=== PATIENT | female | born 1945 | race Caucasian/White ===

== ENCOUNTER 2017-02-23 17:03 | Inpatient (IN) | payer OTHER ==
[2017-02-23] MEDS ORDERED: oxyCODONE IR 5 MG TAB PO PRN (18:15)
[2017-02-23] MEDS ORDERED: ACETAMINOPHEN 325 MG TAB PO PRN (18:15)
[2017-02-23] MEDS ORDERED: NS 1,000 ML IV SCH (18:15)
[2017-02-23] MEDS ORDERED: ONDANSETRON DISINTEGRATING 4 MG TAB PO PRN (18:15)
[2017-02-23] MEDS ORDERED: ONDANSETRON 4 MG/2 ML VIAL IVP PRN (18:15)
[2017-02-23] MEDS ORDERED: POLYETHYLENE GLYCOL 3350 17 GM PKT PO PRN (18:19)
[2017-02-23] MEDS ORDERED: BISACODYL 10 MG SUPP PR PRN (18:19)
[2017-02-23] MEDS ORDERED: LACTULOSE 20 GM/30 ML UDCUP PO PRN (18:19)
[2017-02-23] MEDS ORDERED: MAGNESIUM HYDROXIDE 30 ML UDCUP PO PRN (18:19)
--- NOTE | 2017-02-23 18:22 | PDGENHP ---
History and Physical - Chief Complaint Acute arm pain - History of Present Illness Primary care provider: Dr. Reyes HPI: 71-year-old female presenting with acute arm pain located over the elbow with associated tenderness, fever and chills. Onset of symptoms 2 days prior and duration has been progressively worsening thereafter. The patient reports that the onset was sudden but coincided with a mild skin tear she experienced over the right elbow. Prior to the skin tear, the affected area has been completely unremarkable. The patient does have chronic joint pain secondary to which she believes is osteoarthritis. She has had joint pain in her elbow in the past but was relatively stable prior to the onset of the symptoms. The patient did see her primary care provider 24 hours prior to this presentation and the margins were demarcated and blood cultures were drawn prior to administering 1 g of IV ceftriaxone, Keflex 500 mg 3 times daily. When she re- presented to the PCP office on the day of this admission, the erythema had been extending beyond the demarcated borders and the patient continued to experience subjective fevers. History Information - Allergies/Home Medication List Allergies/Adverse Reactions: hydromorphone HCl [From Dilaudid] Allergy (Severe, Verified 01/28/15 11:09) DELERIUM meperidine HCl [From Demerol] Allergy (Intermediate, Verified 01/28/15 11:09) Vomiting topiramate [From Topamax] Allergy (Intermediate, Verified 01/28/15 11:09) Vomiting Sulfa (Sulfonamide Antibiotics) Allergy (Unknown, Verified 02/11/15 15:23) NAUSEA SHINGLES VACCINE Allergy (Intermediate, Uncoded 01/28/15 11:09) INJ ARM NERVE PAIN Home Medications: Cholecalciferol (Vitamin D3) [Vitamin D3] 2,000 unit PO DAILY 01/22/15 [Last Taken 01/28/15] Cholecalciferol (Vitamin D3) [Vitamin D3] 2,000 unit PO HS PRN 01/22/15 [Last Taken 01/28/15] Fluticasone Nasal [Flonase Nasal Brewster] 2 sprays EACHNARE DAILY PRN 01/22/15 [ Last Taken 02/11/15 07:30] HYDROcodone/APAP 10/325 [Grant 10/325 (*)] 0.5 tab PO Q4 PRN 01/22/15 [Last Taken 02/11/15 04:00] Herbals/Supplements -Info Only 1 ea PO DAILY 01/22/15 [Last Taken 01/28/15] Lact Cmb2/S.thermophl/Bif Cmb1 [Vsl#3 Cap (*)] 1 each PO DAILY 01/22/15 [Last Taken 01/28/15] Levothyroxine [Synthroid 88 mcg (*)] 88 mcg PO DAILY06 01/22/15 [Last Taken 07:00] Liothyronine Sodium [Cytomel 5 mcg (*)] 5 mcg PO DAILY06 01/22/15 [Last Taken 07:00] Metaxalone [Skelaxin 800 mg (*)] 400 mg PO HS PRN 01/22/15 [Last Taken 02/10/15 22:00] Multivitamin with Minerals [One-A-Day Maximum Formula] 2 each PO BID 01/22/15 [ Last Taken 01/28/15] Goodman-3 Fatty Acids [Fish Oil 1000 mg (*)] 1,000 mg PO BID 01/22/15 [Last Taken 01/28/15] Pregabalin [Lyrica 50mg (*)] 100 mg PO HS 01/22/15 [Last Taken 02/10/15 22:00] SUMAtriptan [Imitrex 50 MG (*)] 50 mg PO Q2H PRN 01/22/15 [Last Taken 01/14/15] Verapamil ER [Calan SR/ER 120MG (*)] 120 mg PO DAILY 01/22/15 [Last Taken 02/10 09:00] celeCOXIB [Celebrex (*)] 200 mg PO BID 01/22/15 [Last Taken 02/10/15 21:45] traZODone [traZODONE 50MG (*)] 100 mg PO HS 01/22/15 [Last Taken 02/10/15 23:00] I have personally reviewed and updated: family history, medical history, social history, surgical history Past Medical History: Fibromyalgia. Severe osteoarthritis - Surgical History Additional surgical history: Bilateral total knee replacement, neck surgery - Family History Additional family history: Mother with severe arthritis, suspected to be non rheumatoid, she believes that her family members and herself have polio - Social History Smoking Status: Never smoked Alcohol Use: Occasionally Drug Use: None (Recently return from a trip to [place], no interaction with stagnant bodies of water) Review of Systems ROS: 10pt was reviewed & negative except for what was stated in HPI & below Muscolosketal: Reports: other (Elbow pain) Physical Exam Constitutional: no apparent distress, not in pain, cachectic, No uncomfortable Eyes: PERRL, anicteric sclera, EOMI Ears, Nose, Mouth, Throat: moist mucous membranes, hearing normal, ears appear normal, no oral mucosal ulcers Cardiovascular: regular rate and rhythym, no murmur, rub, or gallop, No edema Respiratory: no respiratory distress, no rales or rhonchi, clear to auscultation Gastrointestinal: normoactive bowel sounds, soft, non-tender abdomen, no palpable masses Skin: other (Blanching erythema right distal upper extremity with small healing skin abrasion along the right lateral arm near the elbow) Musculoskeletal: other (Full range of motion right wrist without any pain, impaired range of motion of right elbow beyond 30 degrees and 100 and 60 degrees resulting in pain, palpable tender olecranon bursa) Neurologic: AAOx3, sensation intact bilaterally Psychiatric: interacting appropriately, not anxious, not encephalopathic, thought process linear Assessment & Plan Assessment: 71-year-old female presenting with acute cellulitis and possible olecranon bursitis Plan: 1. Cellulitis. Acute, new problem this provider, further workup indicated. Around the elbow with possible underlying olecranon bursitis, leukocytosis -continue monitor blood cultures, sent on 02/22 -repeat CBC with white blood cell count in a.m. -discussed with Dr. Reyes, she has reported to me that the patient received 1 dose of IV ceftriaxone and then subsequent oral Keflex 500 mg three times daily beginning on 02/22, patient has had no clinical response and has this failed outpatient oral antibiotics, requiring initiation of IV antibiotics in the hospital -will administer IV vancomycin, gauge response -get ultrasound of right upper extremity veins to rule out DVT, ultrasound the bursa to gauge size and whether it is actively inflamed -provide IV and oral breakthrough pain medication, bowel regimen -get Infectious Disease consultation in a.m., consider bursa aspiration if area does not appear to be improving, will hold on aspirating at this time so as not to introduce additional infection into the bursa -there is not appear to be joint involvement in the right elbow, no orthopedics consultation indicated at this time 2. Fibromyalgia and severe osteoarthritis. Chronic, continue home medications -reviewed outside records including MRIs from 2011 demonstrating right humerus a vascular process, suspect this is not related process 3. Chronic pain with continuous opiate dependency. Continue patient's home pain medication, increased dose range given acute event Diet. Regular Prophylaxis. High risk patient, Lovenox 40 Code. Full Disposition. Anticipated discharge is 02/24/2017, pending clinical improvement of condition outlined above.
[2017-02-23] MEDS ORDERED: Rizatriptan Benzoate [Rizatriptan] 10 MG PO PRN (19:45)
[2017-02-23] MEDS ORDERED: METAXALONE 800 MG TAB PO PRN (19:45)
[2017-02-23] MEDS ORDERED: FLUTICASONE NASAL 120 SPRAYS/16 GM MDI EACHNARE PRN (19:45)
[2017-02-23] MEDS: PREGABALIN 100 MG CAP PO SCH (20:04)
[2017-02-23] MEDS: MULTIVITAMINS 1 EACH TAB PO SCH (20:04)
[2017-02-23] MEDS: SENNOSIDES/DOCUSATE SODIUM TAB PO SCH (20:04)
[2017-02-23] MEDS: traZODone 100 MG TAB PO SCH (20:05)
[2017-02-23] MEDS: HYDROCODONE/APAP 10/325 TAB PO PRN (20:05)
[2017-02-23] MEDS: VANCOMYCIN 750 MG in D5W 150 ML IV SCH (20:28)
[2017-02-24] MEDS: HYDROCODONE/APAP 10/325 TAB PO PRN ×4 (02:33→20:35)
[2017-02-24 04:59] LABS: % IMMATURE GRANULYOCYTES 0.9 % (0.0-1.1); ABSOLUTE IMMATURE GRANULOCYTES 0.08 10^3/uL (0.00-0.10); ADD DIFF? NO; ADD MORPH? NO; ADD SCAN? NO; ATYPICAL LYMPHOCYTE FLAG 0 (0-99); FRAGMENT RBC FLAG 0 (0-99); HEMATOCRIT 30.4 % (38.0-47.0); HEMOGLOBIN 10.3 g/dL (12.6-16.3); LEFT SHIFT FLG 70 (0-99); LIPEMIA HEMOLYSIS FLAG 90 (0-99); MEAN CELL HEMOGLOBIN 31.1 pg (27.9-34.1); MEAN CELL HEMOGLOBIN CONCENTR. 33.9 g/dL (32.4-36.7); MEAN CELL VOLUME 91.8 fL (81.5-99.8); MEAN PLATELET VOLUME 10.5 fL (8.7-11.7); PLATELET CLUMPS FLAG 0 (0-99); PLATELET COUNT 118 10^3/uL (150-400); RED BLOOD CELL COUNT 3.31 10^6/uL (4.18-5.33); RED CELL DISTRIBUTION WIDTH 14.4 % (11.5-15.2)
[2017-02-24] MEDS: LEVOTHYROXINE 88 MCG TAB PO SCH (05:17)
[2017-02-24 05:25] LABS: ANION GAP 4 mEq/L (8-16); CALCIUM 8.9 mg/dL (8.5-10.4); CARBON DIOXIDE 21 mEq/l (22-31); CHLORIDE 112 mEq/L (97-110); CREATININE 0.6 mg/dL (0.6-1.0); GLOMERULAR FILTRATION RATE > 60; GLUCOSE 91 mg/dL (70-100); POTASSIUM 3.8 mEq/L (3.5-5.2); SODIUM 137 mEq/L (134-144)
[2017-02-24] MEDS: VANCOMYCIN 750 MG in D5W 150 ML IV SCH ×2 (07:41→20:40)
[2017-02-24] MEDS: ENOXAPARIN 40 MG/0.4 ML SYR SC SCH (08:25)
[2017-02-24] MEDS: CHOLECALCIFEROL VIT D3 2,000 UNITS TAB/CAP PO SCH (08:25)
[2017-02-24] MEDS: SENNOSIDES/DOCUSATE SODIUM TAB PO SCH ×2 (08:25→20:36)
[2017-02-24] MEDS: OMEGA-3 FATTY ACIDS 1,000 MG CAP PO SCH (08:25)
[2017-02-24] MEDS: MULTIVITAMINS 1 EACH TAB PO SCH ×2 (08:25→20:38)
[2017-02-24] MEDS: VERAPAMIL ER 120 MG TAB PO SCH (08:29)
[2017-02-24] MEDS ORDERED: Herbals/Supplements -Info Only PO SCH (09:00)
--- NOTE | 2017-02-24 11:34 | GCON ---
[f rep st] CONSULTATION INFECTIOUS DISEASE CONSULTATION DATE OF CONSULTATION: 02/24/2017 REFERRING PHYSICIAN: Solitario Graham MD REASON FOR CONSULTATION: Right olecranon septic bursitis. REASON FOR CONSULTATION: Right upper extremity cellulitis with possible septic olecranon bursitis. HISTORY OF PRESENT ILLNESS: Patient is a 71-year-old female who I am asked to see in consultation for right upper extremity cellulitis and possible septic bursitis. The patient describes developing onset of swelling, pain, erythema, fever and shaking chills approximately 2 days ago. She was seen by her primary care physician for above complaint and given IM ceftriaxone and started on cephalexin with the area being demarcated. The following day, she was seen in followup and noted to have progression of her erythema, and thus was referred to the hospital for further care. The patient does note that prior to onset of symptoms she had a small superficial skin tear when she hit her elbow on a knee wall while staying in a hotel in [place]. She describes having a prior history of olecranon bursitis treated in the past by Dr. Galloway. At her initial visit, blood cultures were obtained, and these are no growth to date. Yesterday the patient had ultrasound performed of the elbow to assess for bursal fluid which showed evidence of a 3.7 x 2 x 3.7 cm bursal fluid collection. Venous ultrasound showed no evidence of DVT. The patient has been started empirically on vancomycin. Given the above findings, I am now asked to assist in her ongoing management. PAST MEDICAL HISTORY: Chronic fatigue/fibromyalgia, osteoarthritis. PAST SURGICAL HISTORY: Bilateral total knee replacement, bilateral hand surgery , right shoulder arthroscopic surgery. CURRENT MEDICATIONS: Vancomycin 750 mg IV q.12 hours, Celebrex 200 mg p.o. twice daily, vitamin D 2000 units p.o. daily, Lovenox 40 mg subcu daily, Flonase 1 spray each nares daily, Synthroid 88 mcg p.o. daily, Skelaxin 400 mg p.o. at bedtime as needed, morphine as needed, multivitamin p.o. twice daily, fish oil 1000 mg p.o. daily, Lyrica 200 mg p.o. at bedtime, trazodone 100 mg p.o. at bedtime, Verapamil SR 120 mg p.o. daily. ALLERGIES: Dilaudid and Demerol; sulfonamides are listed as an allergy with nausea, although patient does not relate this to me today. SOCIAL HISTORY: Patient drinks 1 glass of wine nightly. No tobacco or drug use. Recent travel to [facility]. FAMILY HISTORY: Dementia. REVIEW OF SYSTEMS: Outside that noted in the HPI, the remainder of 10-system review is unremarkable. PHYSICAL EXAMINATION: VITAL SIGNS: Temperature 36.6, heart rate 57, respiratory rate 13, blood pressure 107/54, oxygen saturation 94% on room air. GENERAL: Patient is a thin female, in no acute distress. She appears nontoxic. HEENT: There is no scleral icterus, conjunctival injection, or conjunctival petechiae. Oropharynx clear without lesions. Dentition is in good repair. There is no nasal discharge. There is no tenderness over the frontal, maxillary or mastoid area. NECK: Supple without lymphadenopathy or palpable thyromegaly. CHEST: Clear to auscultation bilaterally without adventitious sounds. Respiratory effort is normal. CARDIOVASCULAR: Regular rate and rhythm without murmurs, gallops, or rubs. ABDOMEN: Soft, nontender, nondistended. There is no palpable organomegaly. Bowel sounds are present. MUSCULOSKELETAL: The right elbow shows palpable fluid in the olecranon bursa with overlying erythema, warmth and tenderness; there is cellulitis extending distally and proximally from the bursal region with associated edema; the erythema does appear to have receded from the previously demarcated area. There is no pain with range of motion of the joint. LYMPHATICS: No cervical or supraclavicular nodes. There is no lymphangitis in the right upper extremity. NEUROLOGIC: Patient is alert and interacts appropriately with the examiner. Cranial nerves 2-12 are grossly intact. Sensation is grossly intact. Muscle tone and bulk are normal. LABORATORY DATA: White blood cell count 8.7, hematocrit 30.4, platelets 118, serum creatinine 0.6, venous lactate 0.6, blood cultures x2 sets from 2016 are no growth. Ultrasound results as outlined above. IMPRESSION: Right olecranon septic bursitis with concomitant cellulitis: Most likely, this will be staphylococcal in etiology. Community-acquired MRSA is a consideration. Beta-hemolytic streptococci such as groups A, B, C, or G can also present in this fashion, although typically much less likely. I think this patient would benefit from orthopedic consultation for aspiration of bursa to guide with microbiologic diagnosis and therapeutic standpoint. If fails to respond, then potentially could require incision and drainage of bursa. RECOMMENDATIONS: 1. Agree with vancomycin 750 mg IV q.12 hours. 2. Will obtain orthopedic consultation. 3. Follow clinical response to above measures. I do not think patient is ready for hospital discharge given clinical findings and would recommend continued hospitalization with IV antibiotics and orthopedic evaluation prior to discharge. 4. Thank you for this consultation. We will continue to follow the patient with you. /[id number]/MODL MTDD
--- NOTE | 2017-02-24 13:31 | HOSPPROG ---
Hospitalist Progress Note Assessment/Plan: Patient is a 71 y/o female who presented to the ER with left elbow pain, swelling, erythema x 2 days. She received 1 dose of IV ceftriaxone and oral Keflex in OP setting. Today is my first encounter with the patient/ chart reviewed. Discussed her care with Dr Rodgesr. *right olcecranon septic bursitis w associated cellulitis vanco ortho to see appreciate Dr Rodgers * Fibromyalgia and severe osteoarthritis. Chronic, continue home medications * Chronic pain with continuous opiate dependency. home meds resumed *anemia will follow * DVT Prophylaxis. High risk patient, Lovenox 40 *Disposition. she will require another midnight stay/ needs iv antibiotics and orthopedic consultation. This will make her IP. Objective: Vital Signs Temp Pulse Resp BP Pulse Ox 37.5 C 88 15 118/67 90 L 02/24/17 11:33 02/24/17 11:33 02/24/17 11:33 02/24/17 11:33 02/24/17 11:33 Laboratory Results 02/24/17 04:25 02/24/17 04:25 02/23/17 02/24/17 02/25/17 05:59 05:59 05:59 Intake Total 250 Output Total 800 Balance -550 - Physical Exam Constitutional: no apparent distress, appears nourished, No not in pain Eyes: PERRL Ears, Nose, Mouth, Throat: hearing normal Cardiovascular: regular rate and rhythym Respiratory: no respiratory distress Gastrointestinal: normoactive bowel sounds Skin: warm, other (right elbow area with dressing in place/ warm and red above and below the dressig) Musculoskeletal: full muscle strength Neurologic: AAOx3 Psychiatric: interacting appropriately ICD10 Worksheet Patient Problems: Problems Problem Status Onset Osteoarthritis of knee Acute
[2017-02-24] MEDS: PREGABALIN 100 MG CAP PO SCH (20:36)
[2017-02-24] MEDS: traZODone 100 MG TAB PO SCH ×2 (23:07→23:09)
[2017-02-25] MEDS: LEVOTHYROXINE 88 MCG TAB PO SCH (05:54)
[2017-02-25] MEDS: CHOLECALCIFEROL VIT D3 2,000 UNITS TAB/CAP PO SCH (08:50)
[2017-02-25] MEDS: OMEGA-3 FATTY ACIDS 1,000 MG CAP PO SCH (08:51)
[2017-02-25] MEDS: SENNOSIDES/DOCUSATE SODIUM TAB PO SCH ×3 (08:51→19:29)
[2017-02-25] MEDS: ENOXAPARIN 40 MG/0.4 ML SYR SC SCH (08:51)
[2017-02-25] MEDS: MULTIVITAMINS 1 EACH TAB PO SCH ×2 (08:51→19:31)
[2017-02-25] MEDS ORDERED: ROPIVACAINE HCL 20 MG/10 ML INJ EP ONE (09:22)
[2017-02-25] MEDS: VANCOMYCIN 750 MG in D5W 150 ML IV SCH (09:25)
--- NOTE | 2017-02-25 09:47 | SOAPPROG ---
SOAP Progress Note Assessment/Plan: Assessment: R elbow septic olecranon bursitis. Staph Plan: 02/25/17 09:44 To OR for washout 02/25/17 09:46 Subjective: R elbow swelling since Monday. Decreased pain and swelling since aspiration yesterday Feeling slightly better than yesterday at bedside Objective: Vital Signs Temp Pulse Resp BP Pulse Ox 37.0 C 71 16 102/57 L 92 02/25/17 07:53 02/25/17 07:53 02/25/17 07:53 02/25/17 07:53 02/25/17 07:53 Microbiology 02/24/17 13:00 Gram Stain - Final Elbow - Aspirate Laboratory Results 02/24/17 04:25 02/24/17 04:25 02/24/17 02/25/17 02/26/17 05:59 05:59 05:59 Intake Total 250 300 Output Total 800 450 Balance -550 -150 swollen R elbow. Painfree ROM 10-120 Painfree ROM pronation and supination boggy, fluctuant olec bursa no active drainage superficial cellulitis dorsal forearm (pt reports better than yesterday) ICD10 Worksheet Patient Problems: Problems Problem Status Onset Osteoarthritis of knee Acute
--- NOTE | 2017-02-25 09:58 | PDCONSULT ---
Racking Technician Note: Procedure note: right elbow bursa aspiration informed consent was obtained after a lengthy discussion of all risks, benefits , complications and alternatives, patient signed informed documentation. patient was premedicated with 2mg morphine IVP -right elbow was cleaned and prepped in a sterile manner using multiple chlorahexadine sponges with sterile gloves. -using a 25 guage needle 4cc of 1% lidocaine was injected into the superficial skin and towards the bursal space -after an appropriate length of time for lidocaine to take effect a 18 guage needle was inserted into the elbow bursa roughly parallel to the ulna aspirating along the way, approximately 7cc of blood mixed with a purulent appearing substance mixed in with the blood. -the 7cc aspirate was then placed in a sterile container as instructed by the lab and sent for multiple studies including musa culture, gram stain, and cell count. -the patients right elbow was then dressed in a sterile dressing with gauze and kerlex. -the patient tolerated the procedure well without complications and was neurovascularly intact post procedure.
--- NOTE | 2017-02-25 10:07 | PCMIDPN ---
Assessment/Plan: Assessment/Plan: * Right olecranon septic bursitis due to MSSA: Bursal aspiration with growth of MSSA. Overall cellulitis improved with significant erythema and bursal fluid remaining over olecranon region. Agree with plans for incision and drainage to facilitate resolution. Will discontinue vancomycin and begin cefazolin based on isolate being MSSA. Findings and plan reviewed with patient , and Dr. Addison. Time spent, 25 minutes, of which greater than half was spent in education/ counseling and coordination of care related to septic bursitis and treatment plan. 02/25/17 10:04 Subjective: Feels better this a.m. with less arm erythema. external grinder tender over olecranon region. Objective: Vital Signs Temp Pulse Resp BP Pulse Ox 37.0 C 71 16 102/57 L 92 02/25/17 07:53 02/25/17 07:53 02/25/17 07:53 02/25/17 07:53 02/25/17 07:53 Microbiology 02/24/17 13:00 Gram Stain - Final Elbow - Aspirate Laboratory Results 02/24/17 04:25 02/24/17 04:25 02/24/17 02/25/17 02/26/17 05:59 05:59 05:59 Intake Total 250 300 Output Total 800 450 Balance -550 -150 Vancomycin # 2 Blood cultures x2 no growth Bursal cultures with growth of MSSA - Physical Exam General Appearance: alert, no apparent distress, non-toxic EENT: No scleral icterus Extremities: inflammation (Right olecranon region with erythema, warmth, tenderness and ballotable fluid; cellulitic component distally and proximally has decreased) Lymphatic: other (No right upper extremity lymphangitis) ICD10 Worksheet Patient Problems: Problems Problem Status Onset Osteoarthritis of knee Acute
[2017-02-25] MEDS: HYDROCODONE/APAP 10/325 TAB PO PRN (10:22)
[2017-02-25] MEDS: VERAPAMIL ER 120 MG TAB PO SCH (10:23)
--- NOTE | 2017-02-25 11:19 | HOSPPROG ---
Hospitalist Progress Note Assessment/Plan: Patient is a 71 y/o female who presented to the ER with left elbow pain, swelling, erythema x 2 days. She received 1 dose of IV ceftriaxone and oral Keflex in OP setting. *right olcecranon septic bursitis w associated cellulitis/MSSA s/p I & D with excision of olecranon bursa abx changed to Cefazolin * Fibromyalgia and severe osteoarthritis. Chronic, continue home medications * Chronic pain with continuous opiate dependency. home meds resumed *anemia will follow * DVT Prophylaxis. High risk patient, Lovenox 40 *Disposition. pending Subjective: Dann has no complaints. Objective: Vital Signs Temp Pulse Resp BP Pulse Ox 37.0 C 71 16 102/57 L 92 02/25/17 07:53 02/25/17 07:53 02/25/17 07:53 02/25/17 07:53 02/25/17 07:53 Microbiology 02/24/17 13:00 Gram Stain - Final Elbow - Aspirate Laboratory Results 02/24/17 04:25 02/24/17 04:25 02/24/17 02/25/17 02/26/17 05:59 05:59 05:59 Intake Total 250 300 Output Total 800 450 Balance -550 -150 - Physical Exam Constitutional: appears nourished, not in pain Eyes: PERRL Ears, Nose, Mouth, Throat: hearing normal Cardiovascular: regular rate and rhythym Respiratory: no respiratory distress Gastrointestinal: normoactive bowel sounds Skin: warm, other (right arm/elbow area in a dressing) Musculoskeletal: No normal joint ROM (right elbow) Neurologic: AAOx3 Psychiatric: interacting appropriately ICD10 Worksheet Patient Problems: Problems Problem Status Onset Osteoarthritis of knee Acute
[2017-02-25] MEDS ORDERED: CEFAZOLIN 1 GM/DEXTROSE/50 ML BAG IV ONE (12:08)
[2017-02-25] MEDS ORDERED: MIDAZOLAM 2 MG/2 ML VIAL ONE (12:17)
[2017-02-25] MEDS ORDERED: fentaNYL 100 MCG/2 ML INJ ONE ×2 (12:22→13:17)
[2017-02-25] MEDS ORDERED: POLYMYXIN B SULFATE 500,000 UNIT/10 ML SYR IRR ONE (12:23)
[2017-02-25] MEDS ORDERED: BACITRACIN 50,000 UNITS/10 ML SYR IRR ONE (12:24)
[2017-02-25] MEDS ORDERED: PROPOFOL 200 MG/20 ML VIAL ONE (12:24)
[2017-02-25] MEDS ORDERED: LIDOCAINE 2% 5 ML SDV ONE (12:32)
[2017-02-25] MEDS ORDERED: ONDANSETRON 4 MG/2 ML VIAL ONE (12:57)
[2017-02-25] MEDS ORDERED: ONDANSETRON DISINTEGRATING 4 MG TAB PO PRN (13:11)
[2017-02-25] MEDS ORDERED: ONDANSETRON 4 MG/2 ML VIAL IVP PRN (13:11)
[2017-02-25] MEDS ORDERED: HYDROCODONE/APAP 10/325 TAB PO PRN (13:14)
--- NOTE | 2017-02-25 13:28 | GOP ---
[f rep st] OPERATIVE REPORT DATE OF OPERATION: 02/25/2017 SURGEON: Solange Addison MD PREOPERATIVE DIAGNOSIS: Staphylococcus right elbow olecranon bursitis and septic bursa with celluli tis. POSTOPERATIVE DIAGNOSIS: Staphylococcus right elbow olecranon bursitis and septic bursa with cellul itis. PROCEDURE PERFORMED: 1. Irrigation and debridement, right elbow. 2. Excision of olecranon bursa, right elbow. 3. Placement of #7 LA NENA drain. FINDINGS: ESTIMATED BLOOD LOSS: Minimal. INDICATIONS: A 71-year-old female with right elbow swelling and cellulitis. Had it since Monday. Please see details of H and P. Failed oral treatments. Slightly to minimal improvement on IV anti biotics and drainage. Presents for operative intervention for suspected staph septic olecranon burs itis. Patient identified in the preoperative holding area. Consent, laterality, and preoperative a ntibiotics were confirmed delivered. All questions were answered. Her was available at the bedside. DESCRIPTION OF PROCEDURE: The patient brought into the operating room. General anesthesia. All ex tremities well padded on the surgical table. Hand table was used. No tourniquet was used. The rig ht upper extremity was prepped and draped in the usual sterile fashion. Surgical time-out was perfo rmed. A 3 cm curvilinear incision was made, laterally based. Kemar pus. Cultures were taken. Ole cranon bursa was excised and sent to Pathology. The wound was irrigated with 6 L of normal saline, with the last 3 L having polymyxin bacitracin. The undermined space was approximately 3 cm laterall y and 1.5 cm to 2 cm medially. We took curettes and multiple rongeurs and did a thorough bursectomy . We closed up with interrupted 3-0 nylon stitches, simple stitches. We placed a LA NENA 7 drain. Ster i-stripped this into place. Soft dressing was applied after 10 cc of 0.2% ropivacaine were injected around the incision in subcutaneous tissue. Xeroform, 4x4s, ABD, Webril, and a sterile Iam. COMPLICATIONS: None. TOTAL SURGICAL TIME: 40 minutes. DISPOSITION: Extubated, to the PACU in stable condition. /[id number]/MODL
[2017-02-25] MEDS: OXYCODONE/APAP 5/325 TAB PO PRN ×2 (14:12→19:27)
[2017-02-25] MEDS: PREGABALIN 100 MG CAP PO SCH (19:30)
[2017-02-25] MEDS: traZODone 100 MG TAB PO SCH (22:40)
[2017-02-26] MEDS: OXYCODONE/APAP 5/325 TAB PO PRN ×6 (00:07→20:29)
[2017-02-26] MEDS: LEVOTHYROXINE 88 MCG TAB PO SCH (05:30)
[2017-02-26] MEDS: OMEGA-3 FATTY ACIDS 1,000 MG CAP PO SCH (08:47)
[2017-02-26] MEDS: CHOLECALCIFEROL VIT D3 2,000 UNITS TAB/CAP PO SCH (08:47)
[2017-02-26] MEDS: SENNOSIDES/DOCUSATE SODIUM TAB PO SCH ×2 (08:47→22:47)
[2017-02-26] MEDS: MULTIVITAMINS 1 EACH TAB PO SCH ×2 (08:47→20:01)
[2017-02-26] MEDS: ENOXAPARIN 40 MG/0.4 ML SYR SC SCH (08:50)
--- NOTE | 2017-02-26 11:10 | HOSPPROG ---
Hospitalist Progress Note Assessment/Plan: Patient is a 71 y/o female who presented to the ER with left elbow pain, swelling, erythema x 2 days. She received 1 dose of IV ceftriaxone and oral Keflex in OP setting. *right olcecranon septic bursitis w associated cellulitis/MSSA s/p I & D with excision of olecranon bursa abx changed to Cefazolin * Fibromyalgia and severe osteoarthritis. Chronic, continue home medications * Chronic pain with continuous opiate dependency. home meds resumed *anemia will follow * DVT Prophylaxis. High risk patient, Lovenox 40 *Disposition. reviewed her care with Dr Rodgers/ will give her a dose of Ceftriaxone 1 gm in a.m. and dc her and have her f/u with Dr Addison and Dr Rodgers. To leave the drain in until she sees Dr Addison on a f/u visit. Subjective: Dann is feeling better today. Objective: Vital Signs Temp Pulse Resp BP Pulse Ox 36.6 C 64 16 120/62 92 02/26/17 08:10 02/26/17 08:10 02/26/17 08:10 02/26/17 08:10 02/26/17 08:10 Microbiology 02/25/17 12:44 Gram Stain - Final Elbow - Eswab 02/24/17 13:00 Gram Stain - Final Elbow - Aspirate Laboratory Results 02/24/17 04:25 02/24/17 04:25 02/25/17 02/26/17 02/27/17 05:59 05:59 05:59 Intake Total 300 800 Output Total 450 435 Balance -150 365 - Physical Exam Constitutional: no apparent distress, appears nourished Eyes: PERRL Ears, Nose, Mouth, Throat: moist mucous membranes Cardiovascular: regular rate and rhythym Respiratory: no respiratory distress Gastrointestinal: normoactive bowel sounds Skin: warm, other (right elbow with dressing in place) Neurologic: AAOx3 Psychiatric: interacting appropriately, not anxious ICD10 Worksheet Patient Problems: Problems Problem Status Onset Osteoarthritis of knee Acute
--- NOTE | 2017-02-26 14:12 | PCMIDPN ---
Assessment/Plan: Assessment/Plan: * Right olecranon septic bursitis due to MSSA status post incision and drainage and bursectomy: Bursal aspiration and operative culture with growth of Staphylococcus aureus of which the bursal aspirate is MSSA. Continue cefazolin currently with likely transition to ceftriaxone tomorrow and continued through Monday with transition to oral doxycycline if clinically improved. Should be able to go home after dose of ceftriaxone on 02/27/2017. 02/26/17 14:09 Subjective: Patient with residual elbow pain postoperatively. Bursectomy and drainage performed yesterday. Objective: Vital Signs Temp Pulse Resp BP Pulse Ox 36.5 C 68 16 114/65 90 L 02/26/17 12:02 02/26/17 12:02 02/26/17 12:02 02/26/17 12:02 02/26/17 12:02 Microbiology 02/25/17 12:44 Gram Stain - Final Elbow - Eswab 02/24/17 13:00 Gram Stain - Final Elbow - Aspirate Laboratory Results 02/24/17 04:25 02/24/17 04:25 02/25/17 02/26/17 02/27/17 05:59 05:59 05:59 Intake Total 300 800 Output Total 450 435 Balance -150 365 Cefazolin # 2, antibiotics # for Aspirate cultures with growth of MSSA Operative cultures with growth of Staphylococcus aureus - Physical Exam General Appearance: alert, no apparent distress EENT: No scleral icterus Extremities: other (No cellulitis above or below dressing margins; drain in place with serosanguineous output) Lymphatic: other (No lymphangitis right upper extremity) ICD10 Worksheet Patient Problems: Problems Problem Status Onset Osteoarthritis of knee Acute
[2017-02-26] MEDS: PREGABALIN 100 MG CAP PO SCH (20:00)
--- NOTE | 2017-02-26 20:28 | SOAPPROG ---
SOAP Progress Note Assessment/Plan: Assessment: POD 1. R elbow septic olecranon bursitis. Staph Plan: 02/25/17 09:44 To OR for washout 02/25/17 09:46 02/26/17 20:25 continue drain until minimal output fu in my clinic monday consider drain removal by nursing monday prior to discharge or drain removal monday in my clinic keep dressing CDI. I will change dressing on Monday in clinic Subjective: POD 1. feeling well. reading the [employer]. at bedside Objective: Vital Signs Temp Pulse Resp BP Pulse Ox 37.3 C 76 20 147/79 H 95 02/26/17 19:50 02/26/17 19:50 02/26/17 19:50 02/26/17 19:50 02/26/17 19:50 Microbiology 02/24/17 13:00 Gram Stain - Final Elbow - Aspirate 02/25/17 12:44 Gram Stain - Final Elbow - Eswab Laboratory Results 02/24/17 04:25 02/24/17 04:25 02/25/17 02/26/17 02/27/17 05:59 05:59 05:59 Intake Total 902 248 4339 Output Total 450 435 15 Balance -950 612 6061 dressing cdi 8 cc clear sero sang in [place] NENA bulb pain free elbow ROM 20-80 nontoxic appearing ICD10 Worksheet Patient Problems: Problems Problem Status Onset Osteoarthritis of knee Acute
[2017-02-26] MEDS: traZODone 100 MG TAB PO SCH (23:45)
[2017-02-27] MEDS: OXYCODONE/APAP 5/325 TAB PO PRN ×3 (00:26→09:23)
[2017-02-27 04:28] VITALS: TEMP 98.4; O2SAT 94
[2017-02-27] MEDS: LEVOTHYROXINE 88 MCG TAB PO SCH (05:20)
[2017-02-27 07:26] VITALS: BP 131/75; PULSE 62; RESP 14
[2017-02-27] MEDS: CHOLECALCIFEROL VIT D3 2,000 UNITS TAB/CAP PO SCH (08:45)
[2017-02-27] MEDS: MULTIVITAMINS 1 EACH TAB PO SCH (08:45)
[2017-02-27] MEDS: OMEGA-3 FATTY ACIDS 1,000 MG CAP PO SCH (08:45)
[2017-02-27] MEDS: SENNOSIDES/DOCUSATE SODIUM TAB PO SCH (08:46)
[2017-02-27] MEDS: ENOXAPARIN 40 MG/0.4 ML SYR SC SCH (08:47)
--- NOTE | 2017-02-27 09:02 | HOSPPROG ---
Hospitalist Progress Note Assessment/Plan: Patient is a 71 y/o female who presented to the ER with left elbow pain, swelling, erythema x 2 days. She received 1 dose of IV ceftriaxone and oral Keflex in OP setting. *right olcecranon septic bursitis w associated cellulitis/MSSA s/p I & D with excision of olecranon bursa abx changed to Cefazolin will give one dose of Ceftriaxone now and stop Cefazolin * Fibromyalgia and severe osteoarthritis. Chronic, continue home medications * Chronic pain with continuous opiate dependency. home meds resumed *anemia will follow * DVT Prophylaxis. High risk patient, Lovenox 40 *Disposition. dc home/f/u with Dr Rodgers and Dr Addison tomorrow/ to come to for antibiotics Subjective: Dann had c/o pain during the night. Objective: Vital Signs Temp Pulse Resp BP Pulse Ox 36.9 C 62 14 131/75 H 94 02/27/17 07:25 02/27/17 07:25 02/27/17 07:25 02/27/17 07:25 02/27/17 07:25 Microbiology 02/24/17 13:00 Gram Stain - Final Elbow - Aspirate 02/25/17 12:44 Gram Stain - Final Elbow - Eswab Laboratory Results 02/24/17 04:25 02/24/17 04:25 02/26/17 02/27/17 02/28/17 05:59 05:59 05:59 Intake Total 800 1400 Output Total 435 25 Balance 365 1375 - Physical Exam Constitutional: no apparent distress, appears nourished Eyes: PERRL Ears, Nose, Mouth, Throat: hearing normal Respiratory: no respiratory distress Musculoskeletal: other (right elbow area in dressing/ alec with scant drainage) Neurologic: AAOx3 Psychiatric: interacting appropriately ICD10 Worksheet Patient Problems: Problems Problem Status Onset Osteoarthritis of knee Acute
--- NOTE | 2017-02-27 10:16 | GDS ---
[f rep st] DISCHARGE SUMMARY DISCHARGE DIAGNOSES: 1. Right olecranon septic bursitis with associated cellulitis/methicillin- sensitive Staphylococcus aureus. 2. Fibromyalgia and severe osteoarthritis. 3. Chronic pain with continuous opiate dependency. 4. Anemia. CONSULTATIONS: During her stay: 1. Dr. Ashok Rodgers. 2. Dr. Solange Addison. HISTORY OF PRESENT ILLNESS: Briefly, the patient is a very sweet 71-year-old woman, who developed swelling, pain, and erythema to her right elbow 2 days prior to her admission. She was seen by her primary care provider. She was given IM ceftriaxone and started on cephalexin with the area being demarcated. She had a progression of her erythema and came to the ER for further evaluation. She was seen and evaluated by Dr. Solange Addison. On February 25 she had an irrigation and debridement of the right elbow as well as an excision of the olecranon bursa with a LA NENA placement. She has improved nicely through her stay. She was treated with cefazolin. She will get a dose of ceftriaxone IV today and get another dose tomorrow, and follow up with Dr. Rodgers and Dr. Addison. HOSPITAL COURSE PER PROBLEM: 1. Right olecranon septic bursitis with associated cellulitis/MSSA. She will be discharged and get a dose of ceftriaxone tomorrow. Further follow up with Dr. Addison tomorrow for dressing change. 2. Fibromyalgia and severe osteoarthritis. Her home medications have been continued. 3. Chronic pain with continuous opiate dependency. Home medications resumed. 4. Anemia, stable. PENDING LABS AND TESTS: None. CONDITION AT DISCHARGE: Stable. Blood pressure is 131/75, heart rate is 62, respiratory rate is 14, O2 sats on room air 94%, temperature 36.9 Celsius. MEDICATIONS AT DISCHARGE: Please see the EMR. DISCHARGE INSTRUCTIONS: 1. To follow up with Dr. Rodgers. He will arrange that. 2. To follow up with Dr. Solange Addison tomorrow. To leave the dressing on. 3. Do not take the [place] while on the Percocet because of the Tylenol. 4. If she develops fever, chills, chest pain, or shortness of breath, return to the ER. Greater than 30 minutes discharging and coordinating care. /[id number]/MODL MTDD
--- NOTE | 2017-02-27 10:22 | POSTANESTH ---
Post Anesthetic Evaluation Cardiovascular Status: Normal, Stable Respiratory Status: Normal, Stable Level of Consciousness/Mental Status: Can Participate in Eval Pain Control: Adequate, Prn Tx Ordered Nausea/Vomiting Control: Adequate, Prn Tx Ordered Complications Possibly Related to Anesthesia: None Noted
--- NOTE | 2017-02-27 10:30 | PCMIDPN ---
Assessment/Plan: Assessment/Plan: * Right olecranon septic bursitis due to MSSA status post incision and drainage and bursectomy: Transition to ceftriaxone today with plans for 1 additional dose of ceftriaxone tomorrow on . Will arrange for follow-up in my office that afternoon with goal of transitioning to oral doxycycline to complete therapy. Will even peripheral IV given difficulty with access and site continues to be without evidence of phlebitis. 02/27/17 10:29 Subjective: Patient complains of neck pain and difficulty with oral pain medications overnight. Elbow feels better. Objective: Vital Signs Temp Pulse Resp BP Pulse Ox 36.9 C 62 14 131/75 H 94 02/27/17 07:25 02/27/17 07:25 02/27/17 07:25 02/27/17 07:25 02/27/17 07:25 Microbiology 02/24/17 13:00 Gram Stain - Final Elbow - Aspirate 02/25/17 12:44 Gram Stain - Final Elbow - Eswab Laboratory Results 02/24/17 04:25 02/24/17 04:25 02/26/17 02/27/17 02/28/17 05:59 05:59 05:59 Intake Total 800 1400 Output Total 435 25 Balance 365 1375 Cefazolin # 3, antibiotics # 5 - Physical Exam General Appearance: alert, no apparent distress EENT: No scleral icterus Extremities: other (No erythema, edema or tenderness above or below dressing site; minimal serosanguineous drainage in [place] NENA drain) Skin: other (IV site in left hand without phlebitis) ICD10 Worksheet Patient Problems: Problems Problem Status Onset Osteoarthritis of knee Acute
== END 2017-02-27 13:49 | disposition home or self-care (01) | DRG 501 ==
LOC: F3N 18:19 → OBSVTOIN 02-24 14:49
PROVIDERS: ADMIT Internal Medicine; ATTEND Internal Medicine
DX: M71.121 Other infective bursitis, right elbow (principal); L03.113 Cellulitis of right upper limb; F11.20 Opioid dependence, uncomplicated; B95.61 Methicillin susceptible Staphylococcus aureus infection as the cause of diseases classified elsewhere; M79.7 Fibromyalgia; G89.29 Other chronic pain; M19.90 Unspecified osteoarthritis, unspecified site; D64.9 Anemia, unspecified; Z96.653 Presence of artificial knee joint, bilateral
CPT/HCPCS: 97165-GO; G0378; G0379; G8987-GO-CI; G8988-GO-CI; G8989-GO-CI; J0690; J0696; J1650; J2250; J2405; J2704; J2795; J3010; J3370

== ENCOUNTER → 2017-05-25 | Outpatient (CLI) | payer OTHER | LOC: BMCIMAGING 08:04 | PROVIDERS: ATTEND Internal Medicine | DX: R14.0 Abdominal distension (gaseous) (principal) ==

== ENCOUNTER → 2017-10-31 | Outpatient (CLI) | payer OTHER | LOC: BMCIMAGING 17:06 | PROVIDERS: ATTEND Internal Medicine | DX: J98.4 Other disorders of lung (principal) ==

== ENCOUNTER → 2017-11-24 | Outpatient (CLI) | payer OTHER | LOC: BHFA 11:00 | PROVIDERS: ATTEND Internal Medicine Cardiovascular Disease | DX: R07.89 Other chest pain (principal) ==

== ENCOUNTER → 2017-11-30 | Outpatient (CLI) | payer OTHER | LOC: BMCIMAGING 12:22 | PROVIDERS: ATTEND Internal Medicine | DX: R06.00 Dyspnea, unspecified (principal); R07.89 Other chest pain ==

== ENCOUNTER → 2017-12-28 | Outpatient (CLI) | payer OTHER | LOC: BHFA 11:30 | PROVIDERS: ATTEND Internal Medicine Cardiovascular Disease | DX: R06.02 Shortness of breath (principal) ==

== ENCOUNTER → 2018-01-30 | Outpatient (CLI) | payer OTHER ==
[~2018-01-30] MED LIST: IOPAMIDOL (ISOVUE 370) 100 ML BTL IV ONE
== END ==
LOC: FIMAGING 13:07
PROVIDERS: ATTEND Internal Medicine
DX: I27.20 Pulmonary hypertension, unspecified (principal)
CPT/HCPCS: 71275; Q9967

== ENCOUNTER → 2018-02-22 | Outpatient (CLI) | payer OTHER | LOC: FIMAGING 15:17 | PROVIDERS: ATTEND Physical Medicine & Rehabilitation | DX: M50.31 Other cervical disc degeneration, high cervical region (principal); M48.02 Spinal stenosis, cervical region ==

== ENCOUNTER → 2018-07-15 | Outpatient (CLI) | payer OTHER | LOC: FIMAGING 11:10 | PROVIDERS: ATTEND Family Medicine | DX: M75.122 Complete rotator cuff tear or rupture of left shoulder, not specified as traumatic (principal); M19.012 Primary osteoarthritis, left shoulder; M65.812 Other synovitis and tenosynovitis, left shoulder ==